=== PATIENT | female | born 1955 | race Caucasian/White ===

== ENCOUNTER 2016-04-22 18:39 | Emergency (ER) | payer OTHER ==
[~2016-04-22] VITALS: Ht 154.9 cm; Wt 130.6 kg
[2016-04-22 20:24] VITALS: BP 155/75
== END 2016-04-22 21:08 | disposition home or self-care (01) ==
LOC: ER 18:43
DX: E11.9 Type 2 diabetes mellitus without complications (principal); E78.5 Hyperlipidemia, unspecified; F31.9 Bipolar disorder, unspecified; Z76.0 Encounter for issue of repeat prescription; Z88.6 Allergy status to analgesic agent